=== PATIENT | female | born 1955 | race Caucasian/White ===

== ENCOUNTER 2021-03-21 19:06 | Emergency (ER) | payer OTHER, SELFPAY ==
[2021-03-21 19:18] VITALS: BP 160/80; PULSE 64; RESP 22; TEMP 35.8; O2SAT 98; BMI 27.3
--- NOTE | 2021-03-21 20:09 | XRR_ITS ---
PROCEDURE INFORMATION: Exam: XR Chest Exam date and time: 03/21/2021 8:09 PM Age: 65 years old Clinical indication: Pain; Other: No chst complaints; Patient HX: No chest complaints, headache; Additional info: Covid symptoms TECHNIQUE: Imaging protocol: XR of the chest. Views: 1 view. COMPARISON: CR Chest 2 views* [id number] 01/20/2017 1:33 PM FINDINGS: Lungs: Lungs are clear bilaterally. Stable calcified granuloma in the left upper lobe. Pleural spaces: No pleural effusion. No pneumothorax. Heart/Mediastinum: The cardiac silhouette and mediastinal contours are unremarkable. Bones/joints: Unremarkable for age. XR/XR chest 1V portable [id number] IMPRESSION: 1. No acute cardiopulmonary process. 2. Incidental/nonacute findings are listed in the report.
--- NOTE | 2021-03-21 20:30 | W.ED.COVID ---
HPI - COVID General: Chief Complaint: COVID symptoms Stated Complaint: COVID +, N/V, headache Time Seen by Provider: 03/21/21 19:59 Triage information: Has fever, cough or shortness of breath. Exposure to COVID + person last 14 days History of Present Illness: Patient is a 65-year-old female comes to the ED with a migraine. Patient says symptoms started yesterday. Patient has a history of migraines and says her symptoms are just like past migraines. She tested positive for Covid a couple days ago and has had some nasal congestion and sinus congestion which she thinks has triggered her migraine. She has nausea, photophobia. Denies any episodes of emesis, cough or fevers. Headache is located in the front part of head and just behind the eyes bilaterally. She rates the pain currently a 7 out of 10. Denies any vision changes, numbness/tingling to 1 side of her body or face or any weakness to 1 side of her body or face. COVID 19 common symptoms: positive headache(s), nasal congestion and nausea; negative fever(s), chills, non-productive cough, productive cough, dyspnea, fatigue, throat pain, vomiting or diarrhea COVID 19 other sytmptoms: negative chest pain COVID Results: No Data to Display Review of Systems Const: Denies: fever(s), chills or fatigue Eyes: Reports: photophobia; Denies: change in vision or eye discomfort ENMT: Reports: nasal congestion; Denies: throat pain, odynophagia or nasal discharge Card: Denies: chest pain, palpitations, edema, swelling of feet/ankles, dyspnea on exertion or orthopnea Resp: Denies: dyspnea, productive cough or non-productive cough GI: Reports: nausea; Denies: abdominal pain, vomiting, diarrhea, constipation or hematochezia : Denies: flank pain, dysuria or hematuria Musc: Denies: neck pain, back pain or extremity swelling Skin/Breast: Denies: rash or new lesions Neuro: Reports: headache(s); Denies: numbness in extremities or weakness in extremities [facility] ED PFSH: Medical History Migraines No pertinent family history Physical Exam Const: COMMON NORMALS: no acute distress, patient oriented x3 and alert GENERAL APPEARANCE: cooperative HENMT: COMMON NORMALS: normocephalic HEAD & SCALP: normocephalic MOUTH: Normal oral and palatal mucosa present THROAT: posterior oropharynx normal and uvula midline Eye: COMMON NORMALS: Equal, round and reactive pupils present, EOMs intact bilaterally and conjunctivae normal CONJUNCTIVA: Yes conjunctivae normal PUPIL: Yes Equal, round and reactive pupils present Neck/C-Spine: COMMON NORMALS: supple GENERAL: Yes normal visual inspection Resp: COMMON NORMALS: normal respiratory effort, No retractions, No use of accessory muscles and clear to auscultation bilaterally AUSCULTATION: clear to auscultation bilaterally Cardio: COMMON NORMALS: regular rate, regular rhythm, S1 normal heart sound present, S2 normal heart sound present, No gallops present (Cardio), No clicks present (Cardio), No murmurs present (Cardio) and Peripheral pulses 2+ throughout RATE: regular rate RHYTHM: regular rhythm HEART SOUNDS: S1 normal heart sound present and S2 normal heart sound present PERIPHERAL PULSES: Peripheral pulses 2+ throughout GI: COMMON NORMALS: Normal to inspection, nondistended, normoactive bowel sounds present, Soft to palpation, non-tender and no masses PALPATION: Yes Soft to palpation : COMMON NORMALS: Yes no CVA tenderness BLADDER/KIDNEY EXAM: Yes no CVA tenderness Back/Pelvis: COMMON NORMALS: no CVA tenderness Extremity: COMMON NORMALS: normal to inspection Neuro: COMMON NORMALS: patient oriented x3, CN's II-XII intact bilaterally, moves all extremities, no focal motor deficits and no sensory deficits noted SENSORIUM/ORIENTATION: Yes alert SENSORY EXAM: Yes extremities (intact) MOTOR EXAM: 5/5 motor strength present throughout Skin: GENERAL SKIN EXAM: dry skin Course Reevaluation(s): Reevaluation #1: I went in and checked on patient after she received meds for migraine. Patient says she is feeling a lot better now that her migraines improved. She feels stable for discharge and is ready to go home and rest. Time: 21:06 Vital Signs: Vital signs: Vital Signs Temperature 96.5 F L 03/21/21 19:18 Pulse Rate 74 03/21/21 21:29 Respiratory Rate 16 03/21/21 21:29 Blood Pressure 160/80 03/21/21 19:18 Pulse Oximetry 97 03/21/21 21:29 MDM - COVID Medical Decision Making Patient is a 65-year-old female comes to the ED with a migraine. Symptoms started a little over 24 hours ago. She says this migraine is like her past migraines. She also tested positive for COVID-19 a couple days ago and has had a little sinus congestion and nasal congestion. Denies any other Covid symptoms. She is having migraine symptoms of nausea, photophobia and a 7 out of 10 migraine headache. Vitals stable. Exam is benign and neuro exam showed no deficits. CBC in BMP were unremarkable. Chest x-ray shows no acute findings. Patient was given IV fluids, Toradol, Reglan, Decadron and Benadryl. Patient's migraine improved after meds. Patient was stable for discharge home. She was told to follow-up with her PCP in 5 to 7 days for reevaluation. Return to ED precautions given. Patient understood agree with plan. Lab Data I reviewed the patient's lab results. : 03/21/21 20:32 03/21/21 20:32 Radiology Impressions Chest X-Ray 03/21/21 20:09 IMPRESSION: 1. No acute cardiopulmonary process. 2. Incidental/nonacute findings are listed in the report. Laboratory Results WBC 7.8 10^3/uL (4.0-10.0) 03/21/21 20: RBC 5.08 10^6/uL (4.1-5.3) 03/21/21 20:32 Hgb 15.0 g/dL (11.5-15.3) 03/21/21 20: Hct 44.3 % (37.0-47.0) 03/21/21: MCV 87.2 fl (81-99) 03/21/21 20: MCH 29.5 pg (28.0-34.0) 03/21/21: MCHC 33.9 g/dL (30.0-36.0) 03/21/21: RDW 12.9 % (12.1-15.1) 03/21/21 20: Plt Count 218 10^3/cmm (130-400) 03/21/21 20: MPV 9.2 fL (7.4-10.4) 03/21/21:32 Neut % (Auto) 67.2 % 03/21/21 20: Lymph % (Auto) 20.5 % 03/21/21 20: [place] % (Auto) 9.0 % 03/21/21 20: Eos % (Auto) 2.3 % 03/21/21 20: Baso % (Auto) 0.5 % 03/21/21 20: Neut # (Auto) 5.25 10^3/uL (1.8-7.7) 03/21/21 20: Lymph # (Auto) 1.6 10^3/uL (0.8-4.8) 03/21/21 20: [place] # (Auto) 0.7 10^3/uL (0.2-0.9) 03/21/21: Eos # (Auto) 0.2 10^3/uL (0.0-0.8) 03/21/21: Baso # (Auto) 0.0 10^3/uL (0.0-0.1) 03/21/21: Nucleated RBC % (auto) 0 % 03/21/21: Nucleated RBCs # 0.0 /100WBC 03/21/21 20:32 Sodium 133 mmol/L (136-145) L 03/21/21 20: Potassium 4.2 mmol/L (3.5-5.1) 03/21/21 20: Chloride 99 mmol/L (98-107) 03/21/21: Carbon Dioxide 23 mmol/L (22-29) 03/21/21 20: Anion Gap 15.2 (5-19) 03/21/21 20: BUN 12 mg/dL (8-23) 03/21/21 20: Creatinine 0.5 mg/dL (0.5-0.9) 03/21/21 20: GFR Calculation 123.1 mL/min (90-130) 03/21/21: Glucose 83 mg/dL (65-115) 03/21/21 20: Calculated Osmolality 275 mOsm/kg (285-295) L 03/21/21: Calcium 10.4 mg/dL (8.5-10.5) 03/21/21 20: No Data to Display Discharge Plan Discharge Patient Disposition: Home Clinical Impression: Migraine Qualifiers: Migraine type: without aura Status migrainosus presence: without status migrainosus Intractability: not intractable Qualified Code(s): G43.009 - Migraine without aura, not intractable, without status migrainosus Condition: Stable Discharge Orders: Discharge ED (Routine); Ordered 03/21/21 Ordered By: Khang Dee Discharge Diet: Regular Discharge Activity: Resume usual activity Patient Instructions: Headache - Migraine (Adult) Activity Restrictions/Additional Instructions: Follow-up with medical provider as directed in 7 to 10 days for reevaluation. Continue taking all home meds as previously prescribed. Return to the ER or your medical provider if condition worsens. Please read and understand discharge instructions. Thank you for choosing [facility] for your healthcare needs today. Please realize this is an emergency room and that we are providing you with a medical screening exam and this may not be complete and all inclusive of all the testing and or work up that you may need to determine your ailment or severity of your illness. It is very important that you follow up as instructed or that you return to the Emergency Department should you have concerns or if your condition changes or worsens in any way. Coding Level of Care Code ED Detonator Assembler for Adriana Pena Exam Comprehensive
[2021-03-21] MEDS: sodium chloride 0.9% 1,000 ML 999 ML IV (20:40)
[2021-03-21] MEDS: ketorolac 30 mg/mL INJ IVP (20:41)
[2021-03-21] MEDS: diphenhydrAMINE 50 mg/mL SDV 1mL 25 MG IVP (20:42)
[2021-03-21 20:44] LABS: Basophils % 0.5 %; Eosinophils # 0.2 10^3/uL (0.0-0.8); Eosinophils % 2.3 %; Hematocrit 44.3 % (37.0-47.0); Lymphocytes # 1.6 10^3/uL (0.8-4.8); Lymphocytes % 20.5 %; Mean Corpuscular HGB Conc 33.9 g/dL (30.0-36.0); Mean Corpuscular Hemoglobin 29.5 pg (28.0-34.0); Mean Corpuscular Volume 87.2 fl (81-99); Mean Platelet Volume 9.2 fL (7.4-10.4); Monocytes # 0.7 10^3/uL (0.2-0.9); Neutrophils # 5.25 10^3/uL (1.8-7.7); Neutrophils % 67.2 %; Nucleated Red Blood Cells % 0 %; Platelet Count 218 10^3/cmm (130-400); Red Blood Count 5.08 10^6/uL (4.1-5.3); Red Cell Distribution Width 12.9 % (12.1-15.1); White Blood Count 7.8 10^3/uL (4.0-10.0)
[2021-03-21] MEDS: metoclopramide 5 mg/mL SDV 2 mL 10 MG IVP (20:44)
[2021-03-21] MEDS: dexamethasone 10 mg/mL INJ IVP (20:46)
[2021-03-21 21:04] LABS: Anion Gap 15.2 (5-19); Blood Urea Nitrogen 12 mg/dL (8-23); Calcium 10.4 mg/dL (8.5-10.5); Carbon Dioxide 23 mmol/L (22-29); Chloride 99 mmol/L (98-107); Glomerular Filtration Rate 123.1 mL/min (90-130); Glucose 83 mg/dL (65-115); Osmolality Calculated 275 mOsm/kg (285-295); Potassium 4.2 mmol/L (3.5-5.1); Sodium 133 mmol/L (136-145)
[2021-03-21 21:29] VITALS: PULSE 74; RESP 16; O2SAT 97
== END 2021-03-21 21:29 | disposition home or self-care (01) ==
PROVIDERS: Emergency Provider Physician Assistant
DX: G43.009 Migraine without aura, not intractable, without status migrainosus (principal)
CPT/HCPCS: 71045; 80048; 85025; 96361; 96374; 96375; 99283; J1100; J1200; J1885; J2765; J7030

== ENCOUNTER 2023-06-28 14:38 | Outpatient (CLI) | payer OTHER, SELFPAY ==
--- NOTE | 2023-06-28 14:42 | XR_ITS ---
WS: [id number] DEXA (DUAL ENERGY X-RAY ABSORPTIOMETRY) Bone mineral density was performed using a [employer] machine. HISTORY: POSTMENOPAUSAL STATE COMPARISON: None available. Lumbar spine BMD (L1-L4): 1.163 g/cm2 T score: -0.1 Z score: 0.8 Total hip BMD: Left: 0.915 g/cm2. T score: -0.7 Z score: 0.2 Right: 0.921 g/cm2. T score: -0.7 Z score: 0.3 10 year probability of a major osteoporotic fracture is 9.1%. XR/XR DEXA axial skeleton* [id number] IMPRESSION: NORMAL BONE MINERAL DENSITY based upon the WHO classification for females.
--- NOTE | 2023-06-28 16:33 | MM_ITS ---
WS: [id number] Bilateral screening 3D tomosynthesis digital mammogram, 06/28/2023 Clinical Data: SCREENING Comparison: 04/29/2016 Findings: The breast parenchymal pattern shows fibroglandular tissue. No spiculated masses or clustered calcifi cations are seen. There are no secondary signs of carcinoma. MM/[place] [id number] Impression: 1. Negative bilateral mammogram unchanged. 2. Recommend annual screening mammograms. BIRADS: 1-Negative FOLLOW UP: 1 Year Follow-up The CAD fitting room checker was used.
== END 2023-06-28 14:39 | disposition home or self-care (01) ==
LOC: RAD 14:39
PROVIDERS: PCP Physician Assistant; Visit Provider Physician Assistant
DX: Z12.31 Encounter for screening mammogram for malignant neoplasm of breast (principal); R92.323 Mammographic fibroglandular density, bilateral breasts; Z13.820 Encounter for screening for osteoporosis
CPT/HCPCS: 77063; 77067; 77080